=== PATIENT | female | born 1985 | race Caucasian/White ===

== ENCOUNTER 2023-10-05 08:00 | Outpatient (RCR) | payer BC, SELFPAY | END 2023-11-16 14:01 | disposition home or self-care (01) | LOC: PT 08:00 | PROVIDERS: Visit Provider Family Medicine Sports Medicine | DX: M54.6 Pain in thoracic spine (principal); G89.29 Other chronic pain | CPT/HCPCS: 97010; 97014; 97110; 97163; G0283 ==

== ENCOUNTER 2024-02-09 14:00 | Outpatient (RCR) | payer BC, SELFPAY | END 2024-02-16 08:55 | disposition home or self-care (01) | LOC: PT 14:00 | PROVIDERS: Visit Provider Family Medicine Sports Medicine | DX: M54.9 Dorsalgia, unspecified (principal); M54.6 Pain in thoracic spine | CPT/HCPCS: 20560; 97010; 97014; 97035; 97110; 97112; 97140; 97163; 97530; G0283 ==